=== PATIENT | female | born 1985 | race Asian ===

== ENCOUNTER 2019-08-06 08:00 | Outpatient (CLI) | payer OTHER ==
[2019-08-06 21:15] LABS: TRICHOMONAS VAGINALIS DNA NEGATIVE (NEGATIVE)
== END 2019-08-06 23:59 | disposition home or self-care (01) ==
LOC: LAB.R 08:00
PROVIDERS: ATTEND Obstetrics & Gynecology
DX: Z36.85 Encounter for antenatal screening for Streptococcus B (principal)
CPT/HCPCS: 87491; 87591; 87661; 87797